=== PATIENT | female | born 1990 | race Two or more races ===

== ENCOUNTER 2016-11-06 11:04 | Emergency (ER) | payer SELFPAY ==
[~2016-11-06 11:04] MED LIST: AMOX1TAB61 PO; DIPH25CA58 PO; HYDR-971 PO; PRED50TA PO; SULF1TAB24 PO
--- NOTE | 2016-11-06 11:43 | PHYS DOC ---
Past Medical History Past Medical History: A-Fib, Asthma, Seizure Additional Past Medical Histor: POLYCYSTIC OVARY, SKIN CANCER, SVT Past Surgical History: , Other Additional Past Surgical Histo: 2cardiac ablasion,2 ACL repairs, skin cancer, PCOS Alcohol Use: Heavy Drug Use: Marijuana Adult General Chief Complaint Chief Complaint: EYE PROBLEMS HPI HPI Patient is a 25 year old female who presents with right eye lid redness and swelling that she noted when she woke up this morning. Patient also states her left eye is irritated. Patient denies any vision loss. She believes this could come from her makeup. Review of Systems Review of Systems Constitutional: Denies fever or chills [] Eyes: Right eye lid swelling and redness, left eye irritation HENT: Denies nasal congestion or sore throat [] Integument: Denies rash or skin lesions [] Neurologic: Denies headache, focal weakness or sensory changes [] Endocrine: Denies polyuria or polydipsia [] Current Medications Current Medications Current Medications Medications (Trade) Dose Ordered Sig/Ced Start Time Stop Time Status Last Admin Dose Admin Diphenhydramine HCl (Benadryl) 25 mg 1X ONCE 11/06/16 11:45 11/06/16 11:46 Erythromycin (Romycin) 0.25 inch 1X ONCE 11/06/16 11:45 11/06/16 11:46 Allergies Allergies Allergies Coded Allergies Type Severity Reaction Last Updated Verified Sulfa (Sulfonamide Antibiotics) Allergy Intermediate 01/19/15 Yes azithromycin Allergy Intermediate 03/16/14 Yes ciprofloxacin Allergy Intermediate 03/16/14 Yes clindamycin Allergy Intermediate 03/16/14 Yes sulfamethoxazole Allergy Intermediate 03/16/14 Yes tetracycline Allergy Intermediate 03/16/14 Yes trimethoprim Allergy Intermediate 03/16/14 Yes Physical Exam Physical Exam Constitutional: Well developed, well nourished, no acute distress, non-toxic appearance. [] HENT: Normocephalic, atraumatic, bilateral external ears normal, oropharynx moist, no oral exudates, nose normal. [] Eyes: PERRLA, EOMI, Right upper eyelid with small amount of swelling and swelling, left eyelid with trace swelling, bilateral conjunctiva appear normal. Skin: Warm, dry, no erythema, no rash. [] Back: No tenderness, no CVA tenderness. [] Extremities: No tenderness, no cyanosis, no clubbing, ROM intact, no edema. [] Neurologic: Alert and oriented X 3, normal motor function, normal sensory function, no focal deficits noted. [] Psychologic: Affect normal, judgement normal, mood normal. [] EKG EKG [] Radiology/Procedures Radiology/Procedures [] Course & Med Decision Making Course & Med Decision Making Pertinent Labs and Imaging studies reviewed. (See chart for details) Patient has been blepharitis, she was given erythromycin eye ointment in the ED. Instructed to use it every 4 hours while awake. Warm compresses recommended to the right upper eyelid Tylenol /Motrin for pain. I also recommended she takes Benadryl as needed for swelling follow-up with the eye doctor in 1-2 weeks as needed. Instructed to return to the ED if symptoms worsen. Instructed to change all her make up after treatment. Dragon Disclaimer Dragon Disclaimer This electronic medical record was generated, in whole or in part, using a voice recognition dictation system. Departure Departure Impression: Primary Impression: Blepharitis of both eyes Disposition: 01 HOME, SELF-CARE Condition: STABLE Referrals: NO PCP (PCP) Jennifer PARK MD Follow up with the eye doctor in 1 week if no improvement Patient Instructions: Blepharitis, [id number] Additional Instructions: You were seen for an eye infection. Please use the provided eye antibiotic ointment every 4 hours while awake for 7 days. Follow-up with your own doctor the provided eye doctor in one week if symptoms do not improve. Take Benadryl every 4 hours as needed. Come back to the emergency room if symptoms worsen. Problem Qualifiers Primary Impression: Blepharitis of both eyes Blepharitis type: unspecified type Eyelid: lower Qualified Code: H01.002 - Unspecified blepharitis right lower eyelid SHANE PEREYRA APRN Nov 06, 2016 11:43
[2016-11-06] MEDS ORDERED: ERYTHROMYCIN 0.5% OPHTH OINTMENT 1GM TUBE. OU ONE (11:45)
[2016-11-06] MEDS ORDERED: DIPHENHYDRAMINE HCL 25 MG CAPSULE PO ONE (11:45)
[2016-11-06 12:05] VITALS: BP 138/79
== END 2016-11-06 12:24 | disposition home or self-care (01) ==
LOC: ER 11:04
DX: H01.001 Unspecified blepharitis right upper eyelid (principal); H01.006 Unspecified blepharitis left eye, unspecified eyelid; F12.10 Cannabis abuse, uncomplicated; I48.91 Unspecified atrial fibrillation; F10.20 Alcohol dependence, uncomplicated; J45.909 Unspecified asthma, uncomplicated; Z88.2 Allergy status to sulfonamides; Z88.6 Allergy status to analgesic agent; Z88.1 Allergy status to other antibiotic agents; Z88.8 Allergy status to other drugs, medicaments and biological substances
CPT/HCPCS: 99283; Q0163

== ENCOUNTER 2016-12-31 20:39 | Emergency (ER) | payer SELFPAY ==
[~2016-12-31] VITALS: Ht 180.3 cm; Wt 95.3 kg
[2016-12-31 21:40] VITALS: BP 125/67
[2016-12-31] MEDS ORDERED: HYDROCODONE/APAP 5/325MG TABLET. PO ONE (22:30)
[2016-12-31] MEDS ORDERED: HYDR-971 PO (23:23)
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
--- NOTE | 2017-01-01 08:10 | RAD ---
Exam performed: 3 views right knee. Clinical indication: Right knee pain, status post injury Date of Service: 12/31/16 Comparison:08/03/13. Findings: AP, oblique and lateral radiographs of the knee reveal the osseous structures to be intact and well aligned. There are postoperative changes of prior ACL repair. The joint space is well-preserved. Small osteophyte seen from the lateral tibial plateau. The articular margins are smooth. Evidence of calcific loose body not seen. Small joint effusion noted. Impression: Postoperative changes of previous ACL repair. No acute abnormality noted. Small joint effusion
== END 2016-12-31 23:32 | disposition home or self-care (01) ==
LOC: ER 20:39
DX: S00.83XA Contusion of other part of head, initial encounter (principal); M25.561 Pain in right knee; R51 Headache; I48.91 Unspecified atrial fibrillation; J45.909 Unspecified asthma, uncomplicated; E28.2 Polycystic ovarian syndrome; F17.200 Nicotine dependence, unspecified, uncomplicated; Z88.2 Allergy status to sulfonamides; Z88.1 Allergy status to other antibiotic agents; Y04.0XXA Assault by unarmed brawl or fight, initial encounter; Y93.89 Activity, other specified; Y99.8 Other external cause status; Y92.89 Other specified places as the place of occurrence of the external cause
CPT/HCPCS: 29505; 73562; 99284-25

== ENCOUNTER 2018-05-02 08:22 | Emergency (ER) | payer SELFPAY ==
[2018-05-02] MEDS: HYDROcodone/APAP 5/325MG 1 TAB TABLET PO (08:46)
[2018-05-02] MEDS: diazePAM 5 MG TABLET PO (08:46)
== END 2018-05-02 09:20 | disposition home or self-care (01) ==
LOC: ER 08:22
DX: M25.561 Pain in right knee (principal); I48.91 Unspecified atrial fibrillation; J45.909 Unspecified asthma, uncomplicated; Z88.1 Allergy status to other antibiotic agents; Z88.2 Allergy status to sulfonamides
CPT/HCPCS: 29505; 73560; 99284

== ENCOUNTER 2018-10-01 15:31 | Emergency (ER) | payer SELFPAY ==
[~2018-10-01] VITALS: Ht 180.3 cm; Wt 108.9 kg
[~2018-10-01 15:31] MED LIST changes: +CYCL5TAB PO; +HYDR-3164 PO; -HYDR-971 PO
[2018-10-01 15:49] VITALS: BP 129/64
[2018-10-01] MEDS ORDERED: HYDROcodone/APAP 5/325MG 1 TAB TABLET PO ONE (16:15)
[2018-10-01] MEDS ORDERED: IBUPROFEN 600 MG TABLET. PO ONE (16:15)
[2018-10-01] MEDS ORDERED: HYDR-3164 PO (16:22)
[2018-10-01] MEDS ORDERED: PENI500T PO (16:22)
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
== END 2018-10-01 16:54 | disposition home or self-care (01) ==
LOC: ER 15:31
DX: K02.9 Dental caries, unspecified (principal); I48.91 Unspecified atrial fibrillation; J45.909 Unspecified asthma, uncomplicated; Z98.890 Other specified postprocedural states; Z88.2 Allergy status to sulfonamides; Z88.1 Allergy status to other antibiotic agents
CPT/HCPCS: 99283

== ENCOUNTER 2019-04-11 18:30 | Emergency (ER) | payer SELFPAY ==
[~2019-04-11] VITALS: Ht 180.3 cm; Wt 108.9 kg
[~2019-04-11 18:30] MED LIST changes: +PENI500T PO
[2019-04-11] MEDS ORDERED: MORPHINE SULFATE 10 MG/ML VIAL. IM ONE (18:45)
[2019-04-11] MEDS ORDERED: methylPREDNISolone SOD SUCC PF 125 MG/2 ML VIAL. IM ONE (18:45)
[2019-04-11] MEDS ORDERED: KETOROLAC 60 MG/2 ML VIAL. IM ONE (18:45)
[2019-04-11] MEDS ORDERED: DICL50TA4 PO (20:12)
[2019-04-11] MEDS ORDERED: METH4TAB2 PO (20:12)
--- NOTE | 2019-04-11 20:13 | PHYS DOC ---
Past Medical History Past Medical History: A-Fib, Asthma, Seizure Additional Past Medical Histor: POLYCYSTIC OVARY, SKIN CANCER, SVT Past Surgical History: , Other Additional Past Surgical Histo: 2 cardiac ablasion,2 ACL repairs, skin cancer, PCOS Alcohol Use: Occasionally Drug Use: None Adult General Chief Complaint Chief Complaint: KNEE SWELLING HPI HPI Patient is a 28 year old female who presents to the ED today complaining of a sharp constant 10 out of 10 right lateral knee pain that began this morning. Patient denies any known injury. She states she's had ACL repair to the knee a couple years ago. Patient states the pain is worse on weight-bearing. Denies anything specifically relieving the pain. She is also complaining of a sharp constant 10 out of 10 left toes pain that began a week ago after she stubbed her toes when walking. Patient states the pain is worse on touching those toes. Denies anything specifically relieving the pain. Patient states she went to [facility] emergency room down the street, she states they refused to give her anything for pain. Review of Systems Review of Systems Constitutional: Denies fever or chills [] Musculoskeletal: Reports right knee pain and left toe pain Integument: Denies rash or skin lesions [] Neurologic: Denies headache, focal weakness or sensory changes [] [] All other systems were reviewed and found to be within normal limits, except as documented in this note. Current Medications Current Medications Current Medications Medications (Trade) Dose Ordered Sig/Ced Start Time Stop Time Status Last Admin Dose Admin Ketorolac Tromethamine (Toradol Im) 60 mg 1X ONCE 04/11/19 18:45 04/11/19 18:50 DC 04/11/19 18:55 60 MG Methylprednisolone Sodium Succinate (SOLU-Medrol 125MG VIAL) 125 mg 1X ONCE 04/11/19 18:45 04/11/19 18:50 DC 04/11/19 18:55 125 MG Morphine Sulfate (Morphine Sulfate) 5 mg 1X ONCE 04/11/19 18:45 04/11/19 18:50 DC 04/11/19 18:55 5 MG Allergies Allergies Allergies Coded Allergies Type Severity Reaction Last Updated Verified Sulfa (Sulfonamide Antibiotics) Allergy Intermediate 01/19/15 Yes azithromycin Allergy Intermediate 03/16/14 Yes ciprofloxacin Allergy Intermediate 03/16/14 Yes clindamycin Allergy Intermediate 03/16/14 Yes sulfamethoxazole Allergy Intermediate 03/16/14 Yes tetracycline Allergy Intermediate 03/16/14 Yes trimethoprim Allergy Intermediate 03/16/14 Yes Physical Exam Physical Exam Constitutional: Well developed, well nourished, no acute distress, non-toxic appearance. [] Skin: Warm, dry, no erythema, no rash. [] Back: No tenderness, no CVA tenderness. [] Extremities: Right knee with no obvious deformity. Old healed surgical incision noted on the right anterior knee. Full passive range of motion to the right knee, no laxity. +2 right pedal pulse. Cap refill less than 2 seconds the right lower extremity. Sensation intact to the right lower extremity. Left foot with no obvious deformity. Tenderness diffusely on palpation of the left third through fifth toes. Full range of motion to the left foot and toes. +2 left pedal pulse. Cap refill less than 2 seconds the left toes. Neurologic: Alert and oriented X 3, normal motor function, normal sensory func tion, no focal deficits noted. [] Psychologic: Affect normal, judgement normal, mood normal. [] Current Patient Data Vital Signs Vital Signs Date Time Temp Pulse Resp B/P (MAP) Pulse Ox O2 Delivery O2 Flow Rate FiO2 04/11/19 18:40 98.2 68 20 126/67 (86) 96 Room Air 98.2 EKG EKG [] Radiology/Procedures Radiology/Procedures [] Course & Med Decision Making Course & Med Decision Making Pertinent Labs and Imaging studies reviewed. (See chart for details) This is a 28-year-old female patient presenting to the ED today with with right knee pain-no known injury. See history of present illness. Patient was seen at a different facility prior to coming to the ED and they declined to give her anything for pain. I offered her pain relief in the ED and told that we will not write her any narcotic prescriptions for home use. She requested left foot x-ra y from an injury a week ago. Left foot x-rays interpreted by Dr. Luke and negative for any acute findings. She requested immobilizer for the right knee which was provided and placed in the ED by the ED RN, neurovascular exam is intact. Ice elevation encouraged. Prescriptions for diclofenac and Medrol dose pack provided. She read he has an orthopedic doctor. Dragon Disclaimer Dragon Disclaimer This electronic medical record was generated, in whole or in part, using a voice recognition dictation system. Departure Departure Impression: Primary Impression: Right knee pain Additional Impression: Left foot pain Disposition: 01 HOME, SELF-CARE Condition: STABLE Referrals: NO PCP (PCP) DORA TUTTLE MD follow up next week Patient Instructions: Knee Pain, [id number] Additional Instructions: You were evaluated for right knee and left foot/toe pain, your left foot x-rays were negative for any acute findings. Please ice and elevate the extremities. Take the prescribed medications as ordered. Follow-up with your doctor in 1-2 w eeks. Scripts Methylprednisolone (MEDROL) 4 Mg Tab.ds.pk 1 PKG PO UD, #1 PKG Prov: SHANE PREEYRA APRN 04/11/19 Diclofenac Sodium (DICLOFENAC SODIUM) 50 Mg Tablet.dr 1 TAB PO BID, #20 TAB 0 Refills Prov: SHANE PEREYRA APRN 04/11/19 Problem Qualifiers Primary Impression: Right knee pain Chronicity: acute Qualified Codes: M25.561 - Pain in right knee SHANE PEREYRA APRN Apr 11, 2019 20:13
[2019-04-11 20:25] VITALS: BP 112/58
--- NOTE | 2019-04-11 20:58 | RAD ---
Left foot x-rays 3 views HISTORY: Left foot pain. FINDINGS: There is an acute traumatic oblique fracture of the fourth toe proximal phalanx involving the shaft through the distal head at the PIP joint. Small spur the plantar calcaneus. No dislocation. IMPRESSION: Fracture of the fourth toe proximal phalanx. Electronically signed by: Brigido Wright MD (04/11/2019 8:55 PM) [facility]
== END 2019-04-11 20:26 | disposition home or self-care (01) ==
LOC: ER 18:30
DX: S92.512A Displaced fracture of proximal phalanx of left lesser toe(s), initial encounter for closed fracture (principal); M25.561 Pain in right knee; M79.672 Pain in left foot; I48.91 Unspecified atrial fibrillation; J45.909 Unspecified asthma, uncomplicated; Z88.1 Allergy status to other antibiotic agents; Z88.2 Allergy status to sulfonamides; Z88.8 Allergy status to other drugs, medicaments and biological substances; W22.8XXA Striking against or struck by other objects, initial encounter; Y93.01 Activity, walking, marching and hiking; Y92.89 Other specified places as the place of occurrence of the external cause; Y99.8 Other external cause status
CPT/HCPCS: 29505; 73630; 96372; 99284; J1885; J2270; J2930

== ENCOUNTER 2020-02-07 12:17 | Emergency (ER) | payer SELFPAY ==
[~2020-02-07] VITALS: Ht 180.3 cm; Wt 123.0 kg
[~2020-02-07 12:17] MED LIST changes: +DICL50TA4 PO; +METH4TAB2 PO
[2020-02-07 12:41] VITALS: BP 152/91
[2020-02-07] MEDS: KETOROLAC 60 MG/2 ML VIAL. IM ONE (13:14)
[2020-02-07] MEDS: AMOXICILLIN 250 MG CAPSULE. PO ONE (13:14)
[2020-02-07] MEDS: BUPIVACAINE MPF 0.5% 30 ML VIAL. INJ ONE (13:26)
[2020-02-07] MEDS ORDERED: diphenhydrAMINE 50 MG/ML VIAL ONE (13:58)
[2020-02-07] MEDS: diphenhydrAMINE 50 MG/ML VIAL IM ONE (14:00)
[2020-02-07] MEDS: methylPREDNISolone SOD SUCC PF 125 MG/2 ML VIAL. IM ONE (14:08)
[2020-02-07] MEDS ORDERED: TRAM50TA PO (14:44)
[2020-02-07] MEDS ORDERED: AMOX500C PO (14:44)
[2020-02-07] MEDS ORDERED: IBUP-1060 PO (14:44)
--- NOTE | 2020-02-07 14:45 | PHYS DOC ---
Past Medical History Past Medical History: Asthma, Seizure Additional Past Medical Histor: POLYCYSTIC OVARY, SKIN CANCER, SVT Past Surgical History: , Other Additional Past Surgical Histo: 2 cardiac ablasion,2 ACL repairs, skin cancer, PCOS Smoking Status: Current Every Day Smoker Alcohol Use: Occasionally Drug Use: None Adult General Chief Complaint Chief Complaint: DENTAL PROBLEM [facility] HPI Patient is a 29 year old female presents to ER today for evaluation of right lower jaw pain and swelling for about a month. Patient had not seen a dentist yet due to she has no money. Patient denies any headache, no fever. Patient denies any nausea vomiting. Patient has been able to open her mouth without a problem. Patient complained of pain in her right wisdom tooth area. Review of Systems Review of Systems Constitutional: Denies fever or chills [] Eyes: Denies change in visual acuity, redness, or eye pain [] HENT: Denies nasal congestion or sore throat. POSITIVE FOR RIGHT SIDE LOWER DENTAL PAIN, JAW SWELLING. Respiratory: Denies cough or shortness of breath [] Cardiovascular: No additional information not addressed in HPI [] GI: Denies abdominal pain, nausea, vomiting, bloody stools or diarrhea [] : Denies dysuria or hematuria [] Musculoskeletal: Denies back pain or joint pain [] Integument: Denies rash or skin lesions [] Neurologic: Denies headache, focal weakness or sensory changes [] Endocrine: Denies polyuria or polydipsia [] All other systems were reviewed and found to be within normal limits, except as documented in this note. Current Medications Current Medications Current Medications Medications (Trade) Dose Ordered Sig/[facility] Start Time Stop Time Status Last Admin Dose Admin Amoxicillin (Amoxil) 1,000 mg 1X ONCE 02/07/20 13:00 02/07/20 13:09 DC 02/07/20 13:14 1,000 MG Bupivacaine HCl (Sensorcaine Mpf 0.5%) 30 ml 1X ONCE 02/07/20 13:02/07/20 13:09 DC 02/07/20 13:26 30 ML Diphenhydramine HCl (Benadryl) 50 mg STK-MED ONCE 02/07/20 13:58 02/07/20 13:59 DC Ketorolac Tromethamine (Toradol Im) 60 mg 1X ONCE 02/07/20 13:00 02/07/20 13:09 DC 02/07/20 13:14 60 MG Methylprednisolone Sodium Succinate (SOLU-Medrol 125MG VIAL) 125 mg 1X ONCE 02/07/20 14:00 02/07/20 14:01 DC 02/07/20 14:08 125 MG Allergies Allergies Allergies Coded Allergies Type Severity Reaction Last Updated Verified Sulfa (Sulfonamide Antibiotics) Allergy Intermediate 01/19/15 Yes azithromycin Allergy Intermediate 03/16/14 Yes ciprofloxacin Allergy Intermediate 03/16/14 Yes clindamycin Allergy Intermediate 03/16/14 Yes sulfamethoxazole Allergy Intermediate 03/16/14 Yes tetracycline Allergy Intermediate 03/16/14 Yes trimethoprim Allergy Intermediate 03/16/14 Yes Physical Exam Physical Exam Constitutional: Well developed, well nourished, no acute distress, non-toxic appearance. [] HENT: Normocephalic, atraumatic, bilateral external ears normal, oropharynx moist, no oral exudates, nose normal. RIGHT SIDE LOWER JAW SWELLING. NO TRISMUS. RIGHT LOWER 3RD MOLAR IMPACTED. RIGHT SIDE LOWER GUMLINE AROUND RIGHT 3RD AND 2ND MOLARS SWELLING AND INDURATED. Eyes: PERRLA, EOMI, conjunctiva normal, no discharge. Neck: Normal range of motion, no tenderness, supple, no stridor. [] Cardiovascular:Heart rate regular rhythm, no murmur [] Lungs & Thorax: Bilateral breath sounds clear to auscultation [] Abdomen: Bowel sounds normal, soft, no tenderness, no masses, no pulsatile masses. [] Skin: Warm, dry, no erythema, no rash. [] Back: No tenderness, no CVA tenderness. [] Extremities: No tenderness, no cyanosis, no clubbing, ROM intact, no edema. [] Neurologic: Alert and oriented X 3, normal motor function, normal sensory function, no focal deficits noted. [] Psychologic: Affect normal, judgement normal, mood normal. [] Current Patient Data Vital Signs Vital Signs Date Time Temp Pulse Resp B/P (MAP) Pulse Ox O2 Delivery O2 Flow Rate FiO2 02/07/20 14:13 102 98 Room Air 02/07/20 12:41 98.3 16 152/91 (111) 98.3 EKG EKG [] Radiology/Procedures Radiology/Procedures [] Course & Med Decision Making Course & Med Decision Making Pertinent Labs and Imaging studies reviewed. (See chart for details) Patient was given 60 mg of Toradol IM, 1 g of amoxicillin p.o.. 8 ml of marcaine was used to perform inferior alveolar nerve block and mental block. A 18 GAUGE NEEDLE ATTACHED TO THE 10 ML SYRINGE WAS USED TO PENETRATE THE INDURATED GUMLINE BY THE RIGHT LOWER 2ND AND 3RD MOLAR AREA, SMALL AMOUNT OF YELLOW PUS MIX WITH BLOOD WAS ASPIRATED. Patient tolerated procedure well. About 20 minutes afterward, patient started feeling itching around her face and then became feeling itching all over. Patient said she was given toradol shot in the past, took ibuprofen in the past and tolerated well without any problem. Patient also said she tool amoxil in the past without any problem. Patient said marcaine injection was new medication to her. Therefore, patient most likely has an allergic reaction to marcaine. Patient was given 50 mg benadryl IM, 20 PEPCID PO AND 125 MG SOLUMEDROL IM. After 30 minutes patient felt much better. Patient was discharged home after she was observed for another 30 minutes. Patient denies any chest pain, no trouble breathing. Patient was discharged home, instructed to follow-up with oral surgeon for her impacted third molar infection. Dragon Disclaimer Dragon Disclaimer This electronic medical record was generated, in whole or in part, using a voice recognition dictation system. Departure Departure Impression: Primary Impression: Dental abscess Additional Impression: Allergic reaction caused by a drug Disposition: 01 HOME, SELF-CARE Condition: STABLE Referrals: NO PCP (PCP) Patient Instructions: Allergies, Generic, Dental Abscess Additional Instructions: Thank you for visiting our Emergency Department. We appreciate you trusting us with your care. If any additional problems come up don't hesitate to return to visit us. Please follow up with your primary care provider so they can plan additional care if needed and know about the problem that you had. If symptoms worsen come back to the Emergency Department. Any concerning symptoms that start such as chest pain, shortness of air, weakness or numbness on one side of the body, running high fevers or any other concerning symptoms return to the ER. You were allergic to BUPIVACAINE. PLEASE NOTIFY YOUR DOCTOR ABOUT IT. Scripts Famotidine (PEPCID) 20 Mg Tablet 20 MG PO HS for 5 Days, #5 TAB Prov: GILMAR LANG DO 02/07/20 Prednisone (PREDNISONE) 20 Mg Tablet 1 TAB PO DAILY, #5 TAB Prov: GILMAR LANG DO 02/07/20 Ibuprofen (IBUPROFEN) 800 Mg Tablet 800 MG PO PRN Q8HRS PRN for PAIN, #30 TAB Prov: GILMAR LANG DO 02/07/20 Tramadol Hcl (TRAMADOL HCL) 50 Mg Tablet 50 MG PO Q6HRS PRN for PAIN, #20 TAB Prov: GILMAR LANG DO 02/07/20 Amoxicillin (AMOXICILLIN) 500 Mg Capsule 1 CAP PO TID for 10 Days, #30 CAP Prov: GILMAR LANG DO 02/07/20 Problem Qualifiers GILMAR LANG DO Feb 07, 2020 14:45
[2020-02-07] MEDS ORDERED: FAMO-63 PO (14:49)
[2020-02-07] MEDS ORDERED: PRED20TA PO (14:49)
== END 2020-02-07 14:57 | disposition home or self-care (01) ==
LOC: ER 12:17
DX: T41.3X5A Adverse effect of local anesthetics, initial encounter (principal); K04.7 Periapical abscess without sinus; J45.909 Unspecified asthma, uncomplicated; I97.89 Other postprocedural complications and disorders of the circulatory system, not elsewhere classified; I47.1 Supraventricular tachycardia; F17.200 Nicotine dependence, unspecified, uncomplicated; Z85.828 Personal history of other malignant neoplasm of skin; Z98.890 Other specified postprocedural states; Z88.2 Allergy status to sulfonamides; Z88.1 Allergy status to other antibiotic agents; Z88.8 Allergy status to other drugs, medicaments and biological substances; Z88.6 Allergy status to analgesic agent; Y92.89 Other specified places as the place of occurrence of the external cause
CPT/HCPCS: 41800; 96372; 99284; J1200; J1885; J2930; J3490

== ENCOUNTER 2020-02-09 22:42 | Emergency (ER) | payer SELFPAY ==
[~2020-02-09] VITALS: Ht 180.3 cm; Wt 122.7 kg
[~2020-02-09 22:42] MED LIST changes: +AMOX500C PO; +FAMO-63 PO; +IBUP-1060 PO; +PRED20TA PO; +TRAM50TA PO
[2020-02-09] MEDS ORDERED: cefTRIAXone IM 1 GM VIAL IM ONE (23:15)
[2020-02-09] MEDS ORDERED: methylPREDNISolone SOD SUCC PF 125 MG/2 ML VIAL. IM ONE (23:15)
[2020-02-09] MEDS ORDERED: metroNIDAZOLE 500 MG TABLET PO ONE (23:15)
[2020-02-09] MEDS ORDERED: oxyCODONE/APAP 7.5/325 1 TAB TABLET PO ONE (23:15)
[2020-02-09] MEDS ORDERED: METH4TAB2 PO (23:17)
[2020-02-09] MEDS ORDERED: OXYC1TAB19 PO (23:17)
[2020-02-09] MEDS ORDERED: METR-34 PO (23:17)
--- NOTE | 2020-02-09 23:24 | PHYS DOC ---
Past Medical History Past Medical History: Asthma, Seizure Additional Past Medical Histor: POLYCYSTIC OVARY, SKIN CANCER, SVT Past Surgical History: , Other Additional Past Surgical Histo: 2 cardiac ablasion,2 ACL repairs, skin cancer, PCOS Smoking Status: Current Every Day Smoker Alcohol Use: Occasionally Drug Use: None General Adult EDM: Chief Complaint: DENTAL PROBLEM HPI: HPI: Patient is a 29 year old female who presents with complaint of right lower jaw pain that started about 5 days ago. She states that swelling has been present last 5 days and was seen in this department 2 days ago. Patient states that swelling has gotten slightly larger and more painful. She started taking amoxicillin 2 days ago. Patient is concerned because it doesn't seem to be get ting any better. She states that she was given some Toradol for pain but that is not helping the pain. She denies any fever. She also indicates that she is having some right ear pain.[] Review of Systems: Review of Systems: Constitutional: Denies fever or chills. [] HENT: Complains of right lower dental and jaw. [] Respiratory: Denies cough or shortness of breath. [] Cardiovascular: Denies chest pain or edema. [] Neurologic: Denies headache, focal weakness or sensory changes. [] Heart Score: Risk Factors: Risk Factors: DM, Current or recent (<one month) smoker, HTN, HLP, family history of CAD, obesity. Risk Scores: Score 0 - 3: 2.5% MACE over next 6 weeks - Discharge Home Score 4 - 6: 20.3% MACE over next 6 weeks - Admit for Clinical Observation Score 7 - 10: 72.7% MACE over next 6 weeks - Early Invasive Strategies Current Medications: Current Medications Medications (Trade) Dose Ordered Sig/[facility] Start Time Stop Time Status Last Admin Dose Admin Ceftriaxone Sodium (Rocephin Im) 1 gm 1X ONCE 02/09/20 23:00 02/09/20 23:01 UNV Methylprednisolone Sodium Succinate (SOLU-Medrol 125MG VIAL) 125 mg 1X ONCE 02/09/20 23:00 02/09/20 23:01 UNV Metronidazole (Flagyl) 500 mg 1X ONCE 02/09/20 23:00 02/09/20 23:01 UNV Oxycodone/ Acetaminophen (Percocet 7.5/ 325) 1 tab 1X ONCE 02/09/20 23:00 4/7/20 23:01 UNV Allergies: Allergies: Allergies Coded Allergies Type Severity Reaction Last Updated Verified Sulfa (Sulfonamide Antibiotics) Allergy Intermediate 01/19/15 Yes azithromycin Allergy Intermediate 03/16/14 Yes bupivacaine Allergy Intermediate Rash 02/09/20 Yes ciprofloxacin Allergy Intermediate 03/16/14 Yes clindamycin Allergy Intermediate 03/16/14 Yes sulfamethoxazole Allergy Intermediate 03/16/14 Yes tetracycline Allergy Intermediate 03/16/14 Yes trimethoprim Allergy Intermediate 03/16/14 Yes Physical Exam: PE: Constitutional: Well developed, well nourished, no acute distress, non-toxic appearance. [] HENT: Normocephalic, atraumatic, with mild to moderate swelling in the right lower jaw/mandibular region. [] Neck: Normal range of motion, no tenderness, supple, no stridor. [] Cardiovascular: Regular rate and rhythm[] Lungs & Thorax: Bilateral breath sounds clear to auscultation [] Skin: Warm, dry, no erythema, no rash. [] Current Patient Data: Vital Signs: Vital Signs Date Time Temp Pulse Resp B/P (MAP) Pulse Ox O2 Delivery O2 Flow Rate FiO2 02/09/20 22:45 97.7 85 20 133/76 (95) 98 Room Air 97.7 EKG: EKG: [] Radiology/Procedures: Radiology/Procedures: [] Course & Med Decision Making: Course & Med Decision Making Pertinent Labs and Imaging studies reviewed. (See chart for details) [] Dragon Disclaimer: Dragon Disclaimer: This electronic medical record was generated, in whole or in part, using a voice recognition dictation system. Departure Departure Impression: Primary Impression: Pain, dental Additional Impression: Caries Disposition: HOME, SELF-CARE Condition: STABLE Referrals: NO PCP (PCP) Patient Instructions: Dental Abscess, Dental Caries, Dental Pain Scripts Methylprednisolone (MEDROL) 4 Mg Tab.ds.pk 1 PKG PO UD, #1 PKG Prov: SARIAH FLEMING Jr. DO 02/09/20 Oxycodone/Apap 7.5-325 (PERCOCET 7.5-325 MG TABLET ) 1 Each Tablet 1 TAB PO QIDPRN PRN for PAIN MDD 4 Tablet(s), #15 TAB 0 Refills Prov: SARIAH FLEMING Jr. DO 02/09/20 Metronidazole (METRONIDAZOLE) 500 Mg Tablet 1 TAB PO TID for 10 Days, #30 TAB 0 Refills Prov: SARIAH FLEMING Jr. DO 02/09/20 SARIAH FLEMING Jr. DO Feb 09, 2020 23:24
[2020-02-10 00:15] VITALS: BP 134/80
== END 2020-02-10 00:15 | disposition home or self-care (01) ==
LOC: ER 22:42
DX: K02.9 Dental caries, unspecified (principal); K08.89 Other specified disorders of teeth and supporting structures; R60.0 Localized edema; J45.909 Unspecified asthma, uncomplicated; F17.200 Nicotine dependence, unspecified, uncomplicated; Z85.828 Personal history of other malignant neoplasm of skin; Z98.890 Other specified postprocedural states; Z88.1 Allergy status to other antibiotic agents; Z88.2 Allergy status to sulfonamides; Z88.8 Allergy status to other drugs, medicaments and biological substances
CPT/HCPCS: 96372; 99284; J0696; J2930

== ENCOUNTER → 2020-04-19 | Outpatient (CLI) | payer OTHER ==
[~2020-04-19] MED LIST changes: +HYDR25TA PO; +METR-34 PO; +OXYC1TAB19 PO
--- NOTE | 2020-04-19 10:49 | KCIC ---
MR of the right knee HISTORY: Medial right knee pain. Prior ACL surgery x2. Recent MCL sprain and bone contusion. TECHNIQUE: Routine multiplanar sequences are obtained. COMPARISON STUDY: None are available FINDINGS: Mild motion degradation. Medial meniscus is small and blunted, likely due in part due to prior meniscectomy. However, there is distortion of the meniscus with some abnormal surfacing T2 signal, compatible with a tear. Lateral meniscus demonstrates some internal signal and distortion, particularly at the posterior horn. Could be due to prior meniscectomy but difficult to exclude a mild tear. Anterior cruciate ligament reconstruction is poorly seen. The intercondylar notch is somewhat obscured by postoperative artifact. There is a large lateral femoral sidewall osteophyte which encroaches upon the expected location of the anterior cruciate ligament. Chronic tear is not possible to exclude. Anterior translation of the tibia. No acute pivot shift bone injuries are seen. Posterior cruciate ligament intact. Medial collateral ligament is intact. Iliotibial band unremarkable. Fibular collateral ligament, biceps femoris tendon and popliteus tendon are intact. The extensor mechanism is intact. Moderate joint effusion. No significant Wu's cyst. Severe chondral thinning at the medial joint compartment. Severe chondral thinning at the posterior aspect of the lateral joint compartment. Mild chondromalacia and degenerative changes at the patellofemoral joint. No evidence of acute fracture. No aggressive bone destruction. There is scattered susceptibility artifact around the knee, compatible with prior surgical intervention. IMPRESSION: 1. Abnormal medial meniscus, may be partially postoperative, but recurrent tearing is still suspected. 2. Mild irregularity of the lateral meniscus, compatible with prior surgery versus a mild tear. 3. Anterior cruciate ligament reconstruction is nonvisualized. Although the intercondylar notch is obscured by artifact, the lack of visualization does suggest a chronic tear. 4. DJD. Electronically signed by: Mamadou Villarreal MD (04/19/2020 10:46 AM) [id number]
--- NOTE | 2020-04-19 11:03 | KCIC ---
MR of the left knee HISTORY: Stability of left patellofemoral joint. TECHNIQUE: Routine multiplanar sequences are obtained. FINDINGS: No evidence of medial meniscal tear. No evidence of lateral meniscal tear. Anterior cruciate ligament demonstrates an irregular morphology with some probable slight horizontalization distally and findings are suspicious for a chronic ACL tear. No acute pivot shift bone injuries or large effusion. Posterior cruciate ligament intact. Medial collateral ligament intact. Iliotibial band unremarkable. Fibular collateral ligament, biceps femoris tendon and popliteus tendon are intact. Extensor mechanism intact. Trace joint fluid. Trace Wu's cyst. No acute articular cartilage defect. Mild chondromalacia at the posterior lateral tibial plateau. No acute fracture. No aggressive bone destruction. No visible patellar tilt or subluxation. Tibial tubercle-trochlear groove distance measures 11 mm. IMPRESSION: Thin irregular anterior cruciate ligament, suspicious for a chronic tear. Electronically signed by: Mamadou Villarreal MD (04/19/2020 11:00 AM) [id number]
== END | disposition home or self-care (01) ==
LOC: KCIC MRI 09:32
PROVIDERS: ATTEND Orthopaedic Surgery
DX: M94.262 Chondromalacia, left knee (principal); M25.461 Effusion, right knee; M25.462 Effusion, left knee; M23.8X2 Other internal derangements of left knee; M23.8X1 Other internal derangements of right knee; M17.0 Bilateral primary osteoarthritis of knee
CPT/HCPCS: 73721

== ENCOUNTER 2020-05-20 12:53 | Emergency (ER) | payer OTHER ==
[~2020-05-20] VITALS: Ht 177.8 cm; Wt 118.0 kg
[~2020-05-20 12:53] MED LIST changes: -HYDR25TA PO
[2020-05-20 13:06] VITALS: BP 158/84
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
[2020-05-20] MEDS ORDERED: HYDR25TA PO (14:16)
== END 2020-05-20 14:21 | disposition left against medical advice (07) ==
LOC: ER 12:53
DX: F19.951 Other psychoactive substance use, unspecified with psychoactive substance-induced psychotic disorder with hallucinations (principal); J44.9 Chronic obstructive pulmonary disease, unspecified; F17.200 Nicotine dependence, unspecified, uncomplicated; Z88.1 Allergy status to other antibiotic agents; Z88.2 Allergy status to sulfonamides; Z88.8 Allergy status to other drugs, medicaments and biological substances
CPT/HCPCS: 99284

== ENCOUNTER → 2020-09-06 | Outpatient (CLI) | payer OTHER ==
[~2020-09-06] MED LIST changes: +HYDR-2765 PO; +HYDR25TA PO
== END ==
LOC: LAB 14:41
PROVIDERS: ATTEND Orthopaedic Surgery
DX: Z01.812 Encounter for preprocedural laboratory examination (principal); Z20.828 Contact with and (suspected) exposure to other viral communicable diseases
CPT/HCPCS: U0003

== ENCOUNTER 2020-09-09 06:14 | Observation (INO) | payer OTHER ==
[~2020-09-09] VITALS: Ht 174 cm; Wt 130.5 kg
[2020-09-09] MEDS ORDERED: LIDOCAINE 2% PF 5 ML VIAL. ONE ×2 (06:48→08:17)
[2020-09-09] MEDS ORDERED: fentaNYL PF VIAL 100 MCG/2 ML VIAL ONE ×2 (06:48→10:44)
[2020-09-09] MEDS ORDERED: PROPOFOL 10 MG/ML (20ML) VIAL. IV ONE ×2 (06:48→10:21)
[2020-09-09] MEDS ORDERED: EPINEPHrine VIAL 30 MG/30 ML VIAL ONE (06:49)
[2020-09-09] MEDS ORDERED: IV RINGERS,LACTATED 1000ML 1,000 ML IV SCH (07:00)
[2020-09-09] MEDS ORDERED: LIDOCAINE 1% PF 2 ML VIAL. ID PRN (07:00)
[2020-09-09] MEDS ORDERED: fentaNYL PF VIAL 100 MCG/2 ML VIAL IV PRN (07:00)
[2020-09-09] MEDS ORDERED: PROCHLORPERAZINE 10 MG/2 ML VIAL. IV PRN (07:00)
[2020-09-09] MEDS ORDERED: ONDANSETRON PF 4 MG/2 ML VIAL. IV PRN (07:00)
[2020-09-09] MEDS ORDERED: MIDAZOLAM HCL/PF 2 MG/2 ML VIAL. ONE (07:23)
[2020-09-09] MEDS ORDERED: DEXAMETHASONE SOD PHOS 4 MG/ML VIAL ONE (08:17)
[2020-09-09] MEDS ORDERED: ONDANSETRON PF 4 MG/2 ML VIAL. ONE (08:17)
[2020-09-09] MEDS ORDERED: diphenhydrAMINE 50 MG/ML VIAL ONE (08:18)
[2020-09-09] MEDS ORDERED: EPINEPHrine 1 MG/ML VIAL INT ART ONE (08:30)
[2020-09-09] MEDS ORDERED: ROPIVacaine 0.5% PF 20 ML VIAL. INT ART ONE (08:30)
[2020-09-09] MEDS: fentaNYL PF VIAL 100 MCG/2 ML VIAL IV PRN ×2 (10:44→10:49)
[2020-09-09] MEDS ORDERED: MORPHINE SULFATE 2 MG/ML VIAL. ONE (10:54)
[2020-09-09] MEDS: MORPHINE SULFATE 2 MG/ML VIAL. IV PRN ×2 (10:58→11:08)
[2020-09-09] MEDS ORDERED: PROCHLORPERAZINE 10 MG/2 ML VIAL. ONE (11:05)
[2020-09-09] MEDS ORDERED: HYDROmorphone 2 MG/ML VIAL ONE (11:05)
[2020-09-09] MEDS: HYDROmorphone 2 MG/ML VIAL IV PRN ×4 (11:16→11:50)
[2020-09-09] MEDS: IV NORMAL SALINE 1000ML BAG 1,000 ML IV SCH ×2 (11:21→20:09)
--- NOTE | 2020-09-09 11:21 | PDOC4 ---
Operative Note Operative Note Date of Procedure: September 09, 2020 Pre-Op Diagnosis: Rupture of anterior cruciate ligament of left knee, initial encounter S83.512A Post-Op Diagnosis: same Procedure: left knee arthroscopy with anterior cruciate ligament reconstruction using ipsilateral bone patellar tendon bone autograft CPT 11361 Surgeon: Dora Bueno MD Buckle Assembler: LINDA Rush Anesthesia: General EBL: 50 mL Specimens Obtained: none Complications: none Drains: none Tourniquet: 57 minutes at 300 mm Hg Indications for Procedure: The patient is a 29-year-old with a history of knee injury. The MRI shows ACL tear of the left knee. The patient and I discussed the options for treatment, including anterior cruciate ligament reconstruction. We discussed the potential risks of ACL reconstruction, such as infection, DVT, stiffness, rupture of the graft, or other potential surgical or anesthetic complications. We discussed the long-term risks of osteoarthritis, especially with ACL injury. All of her questions about surgery were answered and she desired to proceed. Written consent was obtained. Procedure in Detail: The patient was identified in the preoperative holding area. The correct left knee was marked by me. The patient was taken to the operating room where general anesthetic was used. The patient was positioned supine on the operating table, with a tourniquet on the upper left thigh. A lateral brace and heel bump were used such that the knee could stay flexed 90 on the table, without an additional criminal legal assistant. Preoperative antibiotics were given intravenously. A timeout procedure was performed. Local anesthetic with epinephrine was injected into the knee joint, and into the anteromedial tibia area. The limb was prepared with sterile ChloraPrep solution from the tourniquet to the tip of the toes, then sterile drapes are applied. An impervi ous stockinette was used over the lower limb. A midline incision was made. A central one third patellar tendon autograft was harvested using micro-oscillating saw, and a 10 mm wide tendon graft. The bone plugs were 10 mm wide by 28 mm in length. I took the graft to the back table, and I further prepared the bone patellar tendon bone graft. I trimmed the bone plugs to fit through a 10 mm tunnel sizer. I drilled 1 hole in the leading future femoral bone plug, and 3 holes in the bone plug which would become the future tibial end of the graft. I placed a #2 FiberWire suture in each of those 4 holes, one in the femoral bone plug and 3 in the tibial bone plug. The graft was kept moistened and pretensioned until implantation. I preserved the removed bone for future grafting of the harvest sites. I proceeded with the arthroscopy. An Esmarch bandage was used to exsanguinate the limb, and the tourniquet was inflated to 300 mm Hg. Lateral and medial knee arthroscopy portals were established. The patellofemoral joint showed normal articular surfaces so no chondroplasty was required. The medial tibiofemoral joint showed normal articular surfaces so no chondroplasty was required. The medial meniscus was normal and stable to probing. The intercondylar notch showed a high-grade ACL tear with no remaining intact fibers. The lateral articular surfaces showed chondromalacia Outerbridge grade I, so no chondroplasty was required. The lateral tibiofemoral joint showed a normal lateral meniscus, so no lateral meniscectomy was required. A notchplasty was performed with a curette, the shaver, and a motorized bur. The suta-fqm-wlo position was able to be identified after that. A drill guide was placed in the old ACL tibial footprint, using landmarks such as 7 mm in front of the PCL, the trailing edge of the anterolateral portal the lateral meniscus, and the medial tibial spine. The guide pin was placed, and then a 10 mm fluted reamer was used to create the tibial tunnel. The entry to the joint was smoothed with a rasp. Excess soft tissue was removed with a shaver from both ends of the tunnel. A plug was placed. The [id number]-[id number]-[id number] position was again identified. A Marija awl was used to spike the femur at the 1:45 o'clock position for a left knee, approximately 7 mm in front of the [id number] position. The knee was now kept in maximal hyperflexion by my criminal legal assistant. A 4.5 mm drill bit was used to create a area relief pilot hole I did all of the work for the femoral tunnel through the medial portal for accurate femoral tunnel placement. A guide pin was placed in the area relief pilot hole, and then a 10 mm acorn reamer was used to create the femoral socket 30 mm in depth. Excess bone was removed with a shaver. The U-shaped guide for the Mitek RigidFix cross pin fixation system was used. Small incisions were made on the lateral thigh. A cannula and trocar drilling device was through the U-guide, to place the trocars such that the cross pins would ultimately across the femoral tunnel. The trocar position crossing the femoral tunnel was confirmed arthroscopically after the guide had been removed. A Beath pin was now used to pull the tails of a Prolene suture out the skin of the lateral thigh. My criminal legal assistant grasped the tails of the Prolene suture, and I grasped the loop of the Prolene, using a grasper, through the tibial tunnel. The graft was now advanced through the tibial tunnel, into the femoral socket, where it seated nicely at 30 mm of depth. The additional drilling across the femoral bone plug was performed using the MiteMytonomy instrumentation short and long drills. The Mitek RigidFix cross pins were deployed, with excellent fixation of the graft. The graft could not be dislodged, with maximum manual tension distally. The graft was almost perfectly isometric with no appreciable tensioning of the graft at full extension. The distal fixation was with a 9 x 30 mm Maxine screw. A nitinol guidewire was placed first. A tap was used, followed by the 9 x 30 Maxine screw. The graft was examined arthroscopically, and was taut to probing and stable and appears in anatomic position and alignment. Excellent graft isometry was achieved with no knee capture, and there was no graft impingement in extension or throughout the range of motion. Knee exam showed normal Agusto and anterior drawer test. The tourniquet was released. Copious saline irrigation was used and bone debris was removed. Bone graft from the graft preparation was applied to the donor sites of the patella and tibia. These donor site incisions were closed with #1 Vicryl [id number] sutures. The central third patellar tendon defect was closed with #1 Vicryl suture. The subcutaneous tissues were closed with 2-0 Vicryl by my criminal legal assistant. My criminal legal assistant closed all of the skin incisions with #3-0 StrataFix monocryl suture. Additional local anesthetic with epinephrine was injected, 20 mLs of 0.5% ropivacaine with epinephrine. Bulky sterile gauze dressings were applied followed by an OMER wrap. Needle and sponge counts were correct. There were no apparent complications. My criminal legal assistant applied a brace in the operating room. DORA BUENO MD Sep 09, 2020 11:21
[2020-09-09] MEDS ORDERED: CALCIUM CARBONATE 500 MG TAB.CHEW PO PRN (11:30)
[2020-09-09] MEDS ORDERED: 0.9 % SODIUM CHLORIDE 10 ML DISP.SYRIN. IV PRN (11:30)
[2020-09-09] MEDS ORDERED: METOCLOPRAMIDE HCL 10 MG/2 ML VIAL. IVP PRN (11:30)
[2020-09-09] MEDS ORDERED: PROCHLORPERAZINE 5 MG TABLET. PO PRN (11:30)
[2020-09-09] MEDS ORDERED: ZOLPIDEM 5 MG TABLET. PO PRN (11:30)
[2020-09-09] MEDS ORDERED: fentaNYL PF VIAL 100 MCG/2 ML VIAL IVP PRN (11:30)
[2020-09-09] MEDS ORDERED: DEXTROSE 50% 25 GM / 50ML DISP.SYRIN. IV PRN (11:30)
[2020-09-09] MEDS: ONDANSETRON PF 4 MG/2 ML VIAL. IVP SCH ×2 (12:00→18:00)
[2020-09-09] MEDS: ONDANSETRON ODT 4 MG TAB.RAPDIS. PO SCH ×2 (12:00→18:00)
[2020-09-09 12:15] VITALS: BP 127/55
--- NOTE | 2020-09-09 12:35 | RAD ---
EXAM: 2 views left knee DATE: 09/09/2020 11:21 AM INDICATION: Reason: POST OP / Spl. Instructions: / History: COMPARISON: 03/30/2020 FINDINGS/ IMPRESSION: 1. Changes of ACL reconstruction are now seen with expected postoperative soft tissue changes including intra-articular and soft tissue gas. Postoperative changes of the patellar and tibial tuberosity from bone graft harvest site. 2. Otherwise no acute fracture or dislocation. Electronically signed by: Roland Rizvi MD (09/09/2020 12:32 PM) [facility]
[2020-09-09] MEDS: KETOROLAC 30 MG/ML VIAL. IVP SCH ×2 (12:50→17:38)
[2020-09-09] MEDS: PROMETHAZINE 12.5 MG TABLET. PO SCH ×2 (12:53→17:38)
[2020-09-09] MEDS: oxyCODONE/APAP 10/325 1 TAB TABLET PO PRN ×2 (13:01→17:16)
[2020-09-09 15:00] VITALS: BP 111/78
[2020-09-09] MEDS: ceFAZolin SODIUM 3 GM in IV DEXTROSE 5% 100ML 100 ML IV SCH ×2 (15:04→20:08)
[2020-09-09 19:20] VITALS: BP 105/49
[2020-09-09] MEDS: diphenhydrAMINE 50 MG/ML VIAL IVP PRN (20:18)
[2020-09-09] MEDS: MORPHINE SULFATE 4 MG/ML VIAL. IVP PRN (20:19)
[2020-09-09] MEDS ORDERED: ASPIRIN ENTERIC COATED 325 MG TABLET.DR. PO SCH (21:00)
[2020-09-09 23:30] VITALS: BP 97/51
[2020-09-10] MEDS: KETOROLAC 30 MG/ML VIAL. IVP SCH ×2 (01:12→06:14)
[2020-09-10] MEDS: ONDANSETRON PF 4 MG/2 ML VIAL. IVP SCH ×2 (01:13→06:00)
[2020-09-10] MEDS: ceFAZolin SODIUM 3 GM in IV DEXTROSE 5% 100ML 100 ML IV SCH (02:26)
[2020-09-10 03:14] VITALS: BP 85/53
--- NOTE | 2020-09-10 04:22 | NUR ---
Patient able to transfer self to [facility] [place] and wearing immobilizer and remain NWB. Asks if she can have a commode for her house. Also asks if ambulance can take her home and help her with the 15 stairs to get into her place.
[2020-09-10] MEDS ORDERED: MAGNESIUM HYDROXIDE 2,400 MG/30 ML ORAL.SUSP. PO PRN (06:00)
[2020-09-10] MEDS: ONDANSETRON ODT 4 MG TAB.RAPDIS. PO SCH ×2 (06:00)
[2020-09-10] MEDS: PROMETHAZINE 12.5 MG TABLET. PO SCH ×2 (06:00)
[2020-09-10] MEDS: oxyCODONE/APAP 10/325 1 TAB TABLET PO PRN ×2 (06:29→10:23)
[2020-09-10 07:00] VITALS: BP 103/59
[2020-09-10] MEDS: diphenhydrAMINE 50 MG/ML VIAL IVP PRN (07:48)
[2020-09-10] MEDS: MORPHINE SULFATE 4 MG/ML VIAL. IVP PRN (08:42)
[2020-09-10] MEDS ORDERED: SENNOSIDES/DOCUSATE 8.6/50MG TABLET. PO SCH (09:00)
[2020-09-10] MEDS ORDERED: MULTIVITAMIN with MINERAL TABLET. PO SCH (09:00)
[2020-09-10 11:00] VITALS: BP 123/49
[2020-09-10] MEDS ORDERED: ONDANSETRON ODT 4 MG TAB.RAPDIS. PO PRN (12:00)
[2020-09-10] MEDS ORDERED: ONDANSETRON PF 4 MG/2 ML VIAL. IVP PRN (12:00)
--- NOTE | 2020-09-10 12:21 | NUR ---
pt was discharged home with self care. parents came to pick her up from hospital at 1200, went over all discharge instructions with her and her pain meds, (hydrocodone was written out and given to her, and a percocet script was electronically sent into her pharmacy), pt took 3 pillows home with her, said she needed padding for her knee. Regulo Santos RN
[2020-09-10] MEDS ORDERED: BISACODYL 10 MG SUPP.RECT. PR PRN (16:00)
== END 2020-09-10 11:58 | disposition home or self-care (01) ==
LOC: SURG 06:14 → 4 NORTH 11:21
PROVIDERS: ADMIT Orthopaedic Surgery; ATTEND Orthopaedic Surgery
DX: S83.512A Sprain of anterior cruciate ligament of left knee, initial encounter (principal); X58.XXXA Exposure to other specified factors, initial encounter; Y93.89 Activity, other specified; Y92.89 Other specified places as the place of occurrence of the external cause; Y99.8 Other external cause status
CPT/HCPCS: 29888; 73560; 81025; 96365; 96366; 96375; 96376; 97116; 97161; 97166; 97530; 97535; A7015; C1713; G0378; G0379; J0171; J0690; J0780; J1100; J1170; J1200; J1885; J2250; J2270; J2405; J2704; J3010; J7030; J7060; Q0169

== ENCOUNTER 2020-09-14 16:22 | Emergency (ER) | payer OTHER ==
[~2020-09-14] VITALS: Ht 177.8 cm; Wt 115.0 kg
[2020-09-14 17:30] VITALS: BP 109/67
[2020-09-14] MEDS ORDERED: IV NORMAL SALINE 1000ML BAG 1,000 ML IV ONE (17:30)
[2020-09-14] MEDS ORDERED: MORPHINE SULFATE 4 MG/ML VIAL. IV ONE (17:45)
[2020-09-14] MEDS ORDERED: ONDANSETRON PF 4 MG/2 ML VIAL. IV ONE (17:45)
[2020-09-14] MEDS ORDERED: diphenhydrAMINE 50 MG/ML VIAL IVP ONE (18:30)
[2020-09-14] MEDS ORDERED: KETOROLAC 30 MG/ML VIAL. IV ONE (18:45)
[2020-09-14 19:04] LABS: BASO # 0.1 x10^3/uL (0.0-0.2); BASO % 1 % (0-3); EOS # 0.2 x10^3/uL (0.0-0.7); EOS % 2 % (0-3); HEMATOCRIT 38.6 % (36.0-47.0); HEMOGLOBIN 13.3 g/dL (12.0-15.5); LYMPH # 1.8 x10^3/uL (1.0-4.8); LYMPH % 18 % (24-48); MEAN CORPUSCULAR HEMOGLOBIN 29 pg (25-35); MEAN CORPUSCULAR HGB CONC 34 g/dL (31-37); MEAN CORPUSCULAR VOLUME 85 fL (79-100); MONO # 0.6 x10^3/uL (0.0-1.1); MONO % 6 % (0-9); NEUT # 7.3 x10^3/uL (1.8-7.7); NEUT % 73 % (31-73); PLATELET COUNT 243 x10^3/uL (140-400); RED BLOOD COUNT 4.55 x10^6/uL (3.50-5.40); RED CELL DISTRIBUTION WIDTH 16.3 % (11.5-14.5)
[2020-09-14 19:23] LABS: ALBUMIN 2.5 g/dL (3.4-5.0); ALBUMIN/GLOBULIN RATIO 0.7 (1.0-1.7); CALCIUM 8.4 mg/dL (8.5-10.1); CREATININE 0.8 mg/dL (0.6-1.0); GFR 83.7; TOTAL BILIRUBIN 0.3 mg/dL (0.2-1.0); TOTAL PROTEIN 6.2 g/dL (6.4-8.2)
[2020-09-14 19:33] LABS: POTASSIUM 4.4 mmol/L (3.5-5.1)
--- NOTE | 2020-09-14 19:41 | RAD ---
Exam: Left lower extremity venous duplex study INDICATION: Leg swelling TECHNIQUE: Using a combination of real-time ultrasound imaging and color-flow and pulse Doppler imaging techniques along with graded compression and augmentation, duplex evaluation of the deep venous systems of leftlower extremity was performed. Multiple images were obtained. Findings: There is no sonographic evidence for deep venous thrombosis involving the visualized deep venous structures of the left lower extremity. IMPRESSION: No acute DVT in the left lower extremities. Electronically signed by: Silvia Sánchez MD (09/14/2020 7:38 PM) [facility]
--- NOTE | 2020-09-14 20:24 | ED.ADGEN ---
Past Medical History Past Medical History: Asthma, Seizure Additional Past Medical Histor: POLYCYSTIC OVARY, SKIN CANCER, SVT Past Surgical History: , Other Additional Past Surgical Histo: 2 cardiac ablasion,3 ACL repairs, skin cancer, PCOS Smoking Status: Current Every Day Smoker Alcohol Use: Occasionally Drug Use: None General Adult EDM: Chief Complaint: LOWER EXT PAIN HPI: HPI: Patient is a 29 year old AA female, accompanied by her mother, who presents emergency room with complaints of left knee and left lower leg pain and swelling. Patient reports that she had an ACL repair here at this facility [address] Bueno. Patient states she was supposed to have outpatient venous Doppler done but the outpatient department sent her to the ER because of her pain level and recent surgery. She denies any bleeding or discharge from the surgical site. She denies any fever, numbness, tingling, or weakness of the lower extremity. She reports pain in her left knee and lower extremity that she currently rates a 10 out of 10 on the pain scale. She denies any alleviating factors. She denies any fall or twisting injury since having the surgery. Review of Systems: Review of Systems: Complete ROS is negative unless otherwise noted in HPI. Current Medications: Current Medications Medications (Trade) Dose Ordered Sig/Ced Start Time Stop Time Status Last Admin Dose Admin Diphenhydramine HCl (Benadryl) 25 mg 1X ONCE 09/14/20 18:30 09/14/20 18:31 DC 09/14/20 18:24 25 MG Ketorolac Tromethamine (Toradol 30mg Vial) 30 mg 1X ONCE 09/14/20 18:45 09/14/20 18:46 DC 09/14/20 19:00 30 MG Morphine Sulfate (Morphine Sulfate) 4 mg 1X ONCE 09/14/20 17:45 09/14/20 17:46 DC 09/14/20 18:12 4 MG Ondansetron HCl (Zofran) 4 mg 1X ONCE 09/14/20 17:45 09/14/20 17:46 DC 09/14/20 18:13 4 MG Oxycodone/ Acetaminophen (Percocet 10/325) 1 tab 1X ONCE 09/14/20 20:30 09/14/20 20:31 DC 09/14/20 20:30 1 TAB Sodium Chloride 1,000 ml @ 1,000 mls/hr 1X ONCE 09/14/20 17:30 09/14/20 18:29 DC 09/14/20 18:15 1,000 MLS/HR Allergies: Allergies: Allergies Coded Allergies Type Severity Reaction Last Updated Verified Sulfa (Sulfonamide Antibiotics) Allergy Intermediate 09/09/20 Yes azithromycin Allergy Intermediate 09/09/20 Yes bupivacaine Allergy Intermediate Rash 09/09/20 Yes ciprofloxacin Allergy Intermediate 09/09/20 Yes clindamycin Allergy Intermediate 09/09/20 Yes sulfamethoxazole Allergy Intermediate 09/09/20 Yes tetracycline Allergy Intermediate 09/09/20 Yes trimethoprim Allergy Intermediate 09/09/20 Yes Physical Exam: PE: See Above Constitutional: Well developed, well nourished, no acute distress, non-toxic appearance, obese. [] HENT: Normocephalic, atraumatic, bilateral external ears normal, nose normal. [] Eyes: PERRLA, EOMI, conjunctiva normal, no discharge. [] Neck: Normal range of motion, no stridor. [] Cardiovascular:Heart rate regular rhythm Lungs & Thorax: Respirations even and unlabored, no retractions, no respiratory distress Skin: Warm, dry, no erythema, no rash; surgical incision to the left knee, no purulent drainage or bleeding, some bruising is present, no warmth. [] Extremities: Lower left extremity: No cyanosis, ROM limited due to pain, 2+ edema of lower left extremity, 2+ pedal pulse, sensation intact Neurologic: Alert and oriented X 3, no focal deficits noted. [] Psychologic: Affect normal, judgement normal, mood normal. [] Current Patient Data: Labs: Laboratory Tests Test 09/14/20 18:50 White Blood Count 10.0 x10^3/uL (4.0-11.0) Red Blood Count 4.55 x10^6/uL (3.50-5.40) Hemoglobin 13.3 g/dL (12.0-15.5) Hematocrit 38.6 % (36.0-47.0) Mean Corpuscular Volume 85 fL (79-100) Mean Corpuscular Hemoglobin 29 pg (25-35) Mean Corpuscular Hemoglobin Concent 34 g/dL (31-37) Red Cell Distribution Width 16.3 % (11.5-14.5) H Platelet Count 243 x10^3/uL (140-400) Neutrophils (%) (Auto) 73 % (31-73) Lymphocytes (%) (Auto) 18 % (24-48) L Monocytes (%) (Auto) 6 % (0-9) Eosinophils (%) (Auto) 2 % (0-3) Basophils (%) (Auto) 1 % (0-3) Neutrophils # (Auto) 7.3 x10^3/uL (1.8-7.7) Lymphocytes # (Auto) 1.8 x10^3/uL (1.0-4.8) Monocytes # (Auto) 0.6 x10^3/uL (0.0-1.1) Eosinophils # (Auto) 0.2 x10^3/uL (0.0-0.7) Basophils # (Auto) 0.1 x10^3/uL (0.0-0.2) Sodium Level 137 mmol/L (136-145) Potassium Level 4.4 mmol/L (3.5-5.1) Chloride Level 102 mmol/L (98-107) Carbon Dioxide Level 27 mmol/L (21-32) Anion Gap 8 (6-14) Blood Urea Nitrogen 11 mg/dL (7-20) Creatinine 0.8 mg/dL (0.6-1.0) Estimated GFR (Cockcroft-Gault) 83.7 BUN/Creatinine Ratio 14 (6-20) Glucose Level 89 mg/dL (70-99) Lactic Acid Level 0.8 mmol/L (0.4-2.0) Calcium Level 8.4 mg/dL (8.5-10.1) L Total Bilirubin 0.3 mg/dL (0.2-1.0) Aspartate Amino Transferase (AST) 25 U/L (15-37) Alanine Aminotransferase (ALT) 28 U/L (14-59) Alkaline Phosphatase 38 U/L (46-116) L Total Protein 6.2 g/dL (6.4-8.2) L Albumin 2.5 g/dL (3.4-5.0) L Albumin/Globulin Ratio 0.7 (1.0-1.7) L Laboratory Tests 09/14/20 18:50 Laboratory Tests 09/14/20 18:50 Vital Signs: Vital Signs Date Time Temp Pulse Resp B/P (MAP) Pulse Ox O2 Delivery O2 Flow Rate FiO2 09/14/20 20:30 22 98 Room Air 09/14/20 20:15 96 09/14/20 17:30 109/67 (81) 09/14/20 16:52 97.6 97.6 EKG: EKG: [] Heart Score: Risk Factors: Risk Factors: DM, Current or recent (<one month) smoker, HTN, HLP, family history of CAD, obesity. Risk Scores: Score 0 - 3: 2.5% MACE over next 6 weeks - Discharge Home Score 4 - 6: 20.3% MACE over next 6 weeks - Admit for Clinical Observation Score 7 - 10: 72.7% MACE over next 6 weeks - Early Invasive Strategies Radiology/Procedures: Radiology/Procedures: PROCEDURE: VENOUS LOWER EXTREMITY LEFT Exam: Left lower extremity venous duplex study INDICATION: Leg swelling TECHNIQUE: Using a combination of real-time ultrasound imaging and color-flow and pulse Doppler imaging techniques along with graded compression and augmentation, duplex evaluation of the deep venous systems of leftlower extremity was performed. Multiple images were obtained. Findings: There is no sonographic evidence for deep venous thrombosis involving the visualized deep venous structures of the left lower extremity. IMPRESSION: No acute DVT in the left lower extremities.[] Course & Med Decision Making: Course & Med Decision Making Pertinent Labs and Imaging studies reviewed. (See chart for details) [id number] spoke with Dr. Bueno and advised of his patient here in the ER. reports that he just sent refills of the patient's pain medications over to her pharmacy. I informed him of the plan of care. I will notify him if there is need to admit the patient for intractable pain. 2026-patient refused x-ray of her left knee I went to speak with the patient the patient reported that she was feeling better after the medications began to work. I advised her that there is no blood clot in her leg. I encouraged her to continue to ice and elevate the surgical extremity as instructed by and encouraged her to continue taking her pain medication that was previously prescribed. Patient requested 1 pain pill prior to being discharged. I ordered 110/325 mg tablet of oxycodone. Patient is instructed to call 's office in the morning to arrange follow-up. Return to the ER if symptoms worsen. Patient verbalized an understanding of home care, medications, follow-up, and return to ED instructions and was in agreement with the plan of care. Majo Disclaimer: Dragmissy Disclaimer: This electronic medical record was generated, in whole or in part, using a voice recognition dictation system. Departure Departure Impression: Primary Impression: Post-operative pain Disposition: 01 DC HOME SELF CARE/HOMELESS Condition: STABLE Referrals: DORA BUENO MD Patient Instructions: Pain Relief Preoperatively and Postoperatively Additional Instructions: Take your pain medication as prescribed by Dr. Bueno. Make sure to rest, ice, and elevate the leg as instructed by him. Follow-up with his office, call tomorrow to schedule your appointment. Return to the ER if symptoms worsen or fever develops. MANNY STALLINGS WORKERS COMPENSATION CLAIMS ADJUSTER Sep 14, 2020 20:24
[2020-09-14] MEDS ORDERED: oxyCODONE/APAP 10/325 1 TAB TABLET PO ONE (20:30)
== END 2020-09-14 20:30 | disposition home or self-care (01) ==
LOC: ER 16:22
DX: G89.18 Other acute postprocedural pain (principal); M79.662 Pain in left lower leg; M25.562 Pain in left knee; R60.0 Localized edema; J45.909 Unspecified asthma, uncomplicated; F17.200 Nicotine dependence, unspecified, uncomplicated; Z98.890 Other specified postprocedural states; Z88.2 Allergy status to sulfonamides; Z88.1 Allergy status to other antibiotic agents; Z88.8 Allergy status to other drugs, medicaments and biological substances
CPT/HCPCS: 36415; 80053; 83605; 85025; 93971; 96361; 96374; 96375; 99285; J1200; J1885; J2270; J2405; J7030

== ENCOUNTER 2021-03-14 18:50 | Emergency (ER) | payer OTHER ==
[~2021-03-14] VITALS: Ht 180.3 cm; Wt 113.6 kg
[2021-03-14 19:16] VITALS: BP 121/72
[2021-03-14] MEDS ORDERED: KETOROLAC 60 MG/2 ML VIAL. IM ONE (19:45)
[2021-03-14] MEDS ORDERED: ORPHENADRINE CITRATE 60 MG/2 ML VIAL. IM ONE (19:45)
[2021-03-14 19:47] LABS: BILIRUBIN,URINE NEGATIVE (NEG); CLARITY,URINE CLEAR; COLOR,URINE YELLOW; NITRITE,URINE NEGATIVE (NEG); PROTEIN,URINE NEGATIVE (NEG-TRACE); UROBILINOGEN,URINE 0.2 mg/dL (0.2 mg/dL)
[2021-03-14 19:53] LABS: BACTERIA,URINE MODERATE /HPF (0-FEW); WBC,URINE 20-40 /HPF (0-4)
--- NOTE | 2021-03-14 20:17 | RAD ---
EXAM: Thoracic and lumbar spine CT without contrast. HISTORY: Fall. TECHNIQUE: Computed tomographic images of the thoracic and lumbar spine were obtained without contras t. Multiplanar reformatting was performed. *One or more of the following individualized dose reduction techniques were utilized for this examina tion: 1. Automated exposure control. 2. Adjustment of the mA and/or kV according to patient size. 3. Use of iterative reconstruction technique. COMPARISON: None. FINDINGS: Thoracic spine: There is mild thoracic scoliosis. There is no significant thoracic listhesis. There i s ex chronic anterior inferior endplate remodeling and Schmorl's node formation at T6. There is also mild endplate remodeling and there are tiny endplate Schmorl's nodes at T7-T8 and T8-T9. There is no suspicious osseous lesion. There are a few small thoracic disc protrusions. There is no significant f oraminal or central canal stenosis. Lumbar spine: There is minimal retrolisthesis of L4 on L5 and L5 and S1. There is minimal multilevel endplate remodeling. There is no suspicious lytic or sclerotic osseous lesion. There is no fracture. The sacroiliac joints are intact. At L1-L2 and L2-L3, there is no stenosis. At L3-L4, there is a right foraminal disc protrusion superimposed on a disc bulge. There is mild righ t foraminal stenosis. At L4-L5, there is a disc bulge and endplate remodeling. There is mild right foraminal stenosis. At L5-S1, there is no stenosis. IMPRESSION: 1. No acute osseous finding. 2. Mild degenerative change throughout the thoracic and lumbar spine, described in detail above. No s evere stenosis is seen. Electronically signed by: Jeri Levin MD (03/14/2021 8:14 PM) [facility]
[2021-03-14] MEDS ORDERED: CYCL10TA2 PO (21:09)
[2021-03-14] MEDS ORDERED: NAPR-514 PO (21:09)
--- NOTE | 2021-03-14 21:12 | ED.ADGEN ---
Past Medical History Past Medical History: Asthma, Seizure Additional Past Medical Histor: POLYCYSTIC OVARY, SKIN CANCER, SVT, chronic knee pain Past Surgical History: , Other Additional Past Surgical Histo: 2 cardiac ablasion,3 ACL repairs, skin cancer, PCOS Smoking Status: Current Every Day Smoker Alcohol Use: Occasionally Drug Use: None General Adult EDM: Chief Complaint: MECHANICAL FALL HPI: HPI: Patient is a 30 year old AA female, accompanied by her significant other, who presents to the emergency room with complaints of diffuse upper the lower back pain after she slipped and fell yesterday. Patient states she walked out of her apartment complex and the floor in front of her was wet. When she stepped on a wet surface she slipped and fell. Patient denies any loss of consciousness, she denies any known head injury. Patient denies any nausea, vomiting, headache, decreased level of consciousness, ear pain, neck pain, numbness, tingling, or weakness. She reports pain all over her back from her bra line down to her buttocks, she denies any saddle anesthesia or loss of bowel/bladder control. Patient also denies any dysuria, hematuria, increased urinary frequency, or difficulty urinating. Patient states she had taken some Percocet for her pain prior to arrival but it did not help to reduce it at all. She currently rates her pain a 10 out of 10 on the pain scale, she denies any alleviating factors, the pain is worse with movement and palpation. Review of Systems: Review of Systems: Complete ROS is negative unless otherwise noted in HPI. Current Medications: Current Medications Medications (Trade) Dose Ordered Sig/[facility] Start Time Stop Time Status Last Admin Dose Admin Ketorolac Tromethamine (Toradol Im) 30 mg 1X ONCE 03/14/21 19:45 03/14/21 19:46 DC 03/14/21 20:04 30 MG Orphenadrine Citrate (Norflex) 60 mg 1X ONCE 03/14/21 19:45 03/14/21 19:46 DC 03/14/21 20:00 60 MG Allergies: Allergies: Allergies Coded Allergies Type Severity Reaction Last Updated Verified Sulfa (Sulfonamide Antibiotics) Allergy Intermediate 09/09/20 Yes azithromycin Allergy Intermediate 09/09/20 Yes bupivacaine Allergy Intermediate Rash 09/09/20 Yes ciprofloxacin Allergy Intermediate 09/09/20 Yes clindamycin Allergy Intermediate 09/09/20 Yes sulfamethoxazole Allergy Intermediate 09/09/20 Yes tetracycline Allergy Intermediate 09/09/20 Yes trimethoprim Allergy Intermediate 09/09/20 Yes Physical Exam: PE: See Above Constitutional: Well developed, well nourished, no acute distress, non-toxic appearance, obese. [] HENT: Normocephalic, atraumatic, bilateral external ears normal, nose normal. [] Eyes: PERRLA, EOMI, conjunctiva normal, no discharge. [] Neck: Normal range of motion, no stridor. [] Cardiovascular:Heart rate regular rhythm Lungs & Thorax: Respirations even and unlabored, no retractions, no respiratory distress Abdomen: soft, no tenderness Back: Diffuse bony tenderness to the lower thoracic and upper lumbar spine, diffuse tenderness to palpation of bilateral paraspinal regions, no obvious deformity or crepitus of spine with palpation. Skin: Warm, dry, no erythema, no rash. [] Extremities: No cyanosis, ROM intact, no edema. [] Neurologic: Alert and oriented X 3, normal motor, normal sensory, no focal deficits noted. [] Psychologic: Affect normal, judgement normal, mood normal. [] Current Patient Data: Labs: Laboratory Tests Test 03/14/21 19:20 03/14/21 19:23 Urine Collection Type Unknown Urine Color Yellow Urine Clarity Clear Urine pH 6.0 (<5.0-8.0) Urine Specific [place] 1.015 (1.000-1.030) Urine Protein Negative mg/dL (NEG-TRACE) Urine Glucose (UA) Negative mg/dL (NEG) Urine Ketones (Stick) 15 mg/dL (NEG) Urine Blood Negative (NEG) Urine Nitrite Negative (NEG) Urine Bilirubin Negative (NEG) Urine Urobilinogen Dipstick 0.2 mg/dL (0.2 mg/dL) Urine Leukocyte Esterase Moderate (NEG) Urine RBC 1-2 /HPF (0-2) Urine WBC 20-40 /HPF (0-4) Urine Squamous Epithelial Cells Mod /LPF Urine Bacteria Moderate /HPF (0-FEW) Urine Mucus Marked /LPF POC Urine HCG, Qualitative Hcg negative (Negative) Microbiology 03/14/21 Urine Culture - Final, Complete 03/14/21 Antimicrobic Susceptibility - Final, Complete Vital Signs: Vital Signs Date Time Temp Pulse Resp B/P (MAP) Pulse Ox O2 Delivery O2 Flow Rate FiO2 03/14/21 19:16 98.7 82 20 121/72 (88) 98 Room Air 98.7 EKG: EKG: [] Heart Score: C/O Chest Pain: No Risk Scores: Score 0 - 3: 2.5% MACE over next 6 weeks - Discharge Home Score 4 - 6: 20.3% MACE over next 6 weeks - Admit for Clinical Observation Score 7 - 10: 72.7% MACE over next 6 weeks - Early Invasive Strategies Radiology/Procedures: Radiology/Procedures: PROCEDURE: CT THORACIC SPINE WO CONTRAST EXAM: Thoracic and lumbar spine CT without contrast. HISTORY: Fall. TECHNIQUE: Computed tomographic images of the thoracic and lumbar spine were obtained without contrast. Multiplanar reformatting was performed. *One or more of the following individualized dose reduction techniques were utilized for this examination: 1. Automated exposure control. 2. Adjustment of the mA and/or kV according to patient size. 3. Use of iterative reconstruction technique. COMPARISON: None. FINDINGS: Thoracic spine: There is mild thoracic scoliosis. There is no significant thoracic listhesis. There is ex chronic anterior inferior endplate remodeling and Schmorl's node formation at T6. There is also mild endplate remodeling and there are tiny endplate Schmorl's nodes at T7-T8 and T8-T9. There is no suspicious osseous lesion. There are a few small thoracic disc protrusions. There is no significant foraminal or central canal stenosis. Lumbar spine: There is minimal retrolisthesis of L4 on L5 and L5 and S1. There is minimal multilevel endplate remodeling. There is no suspicious lytic or sclerotic osseous lesion. There is no fracture. The sacroiliac joints are intact. At L1-L2 and L2-L3, there is no stenosis. At L3-L4, there is a right foraminal disc protrusion superimposed on a disc bulge. There is mild right foraminal stenosis. At L4-L5, there is a disc bulge and endplate remodeling. There is mild right foraminal stenosis. At L5-S1, there is no stenosis. IMPRESSION: 1. No acute osseous finding. 2. Mild degenerative change throughout the thoracic and lumbar spine, described in detail above. No severe stenosis is seen. Electronically signed by: Jeri Levin MD (03/14/2021 8:14 PM) [facility][] Course & Med Decision Making: Course & Med Decision Making Pertinent Labs and Imaging studies reviewed. (See chart for details) Patient presented to emergency department with complaints of back pain after a fall. CT the patient's thoracic and lumbar spine revealed no acute findings there were mild degenerative changes noted throughout. Patient was given 60 mg IM Norflex and 30 mg of Toradol in the emergency department as she reported minimal relief from his medications. Prescriptions written for Flexeril and naproxen. Patient was instructed not to take Flexeril if taking Percocet. I encouraged her to follow-up with a primary care doctor, return to the ER if symptoms worsen or fever develop. Patient verbalized an understanding of home care, medications, follow-up, and return to ED instructions and was in agreement with the plan of care. //////////////////////////////// I oversaw on the above date of service of this patient and discussed the care with the PRICING MANAGER. I agree with the findings, plan of care, and disposition as documented. Electronically signed, DO Majo Nick Disclaimer: Majo Disclaimer: This electronic medical record was generated, in whole or in part, using a voice recognition dictation system. Departure Departure Impression: Primary Impression: Fall from slipping on wet surface Additional Impressions: Acute thoracic back pain Lumbar back pain Bulging discs Disposition: 01 HOME / SELF CARE / HOMELESS Condition: STABLE Referrals: NO PCP (PCP) Patient Instructions: Back Pain, Adult, [id number], Fall Prevention and Home Safety, [id number] Additional Instructions: Fill prescriptions and use them as directed follow-up with your primary care doctor for repeat evaluation in 1 to 2 days, return to the ER if symptoms worsen or fever develops. [facility] [address] [place] [address] [facility] [address] [place] [address] [facility] [address] [facility] [place] [address] [facility] [address] [place] [address] [facility] [address] [facility] [place] [address] [facility] [address] [place] [address] [facility] [place] [address] [facility] [address] [place] [address] [facility] [address] [place] [address] [facility] [address] [place] [address] Scripts Naproxen (NAPROXEN) 500 Mg Tablet 1 TAB PO BID PRN for PAIN for 10 Days, #20 TAB 0 Refills Prov: MANNY STALLINGS APRN 03/14/21 Cyclobenzaprine Hcl (CYCLOBENZAPRINE HCL) 10 Mg Tablet 1 TAB PO TID PRN for MUSCLE PAIN for 10 Days, #30 TAB 0 Refills Prov: MANNY STALLINGS APRN 03/14/21 Problem Qualifiers Primary Impression: Fall from slipping on wet surface Encounter type: initial encounter Qualified Codes: W01.0XXA - Fall on same level from slipping, tripping and stumbling without subsequent striking against object, initial encounter Additional Impressions: Acute thoracic back pain Back pain laterality: bilateral Qualified Codes: M54.6 - Pain in thoracic spine MANNY STALLINGS APRN March 14, 2021 21:12 CAROLYNE HARGROVE DO March 20, 2021 23:47
== END 2021-03-14 21:40 | disposition home or self-care (01) ==
LOC: ER 18:50
DX: M54.5 Low back pain (principal); M54.6 Pain in thoracic spine; M48.061 Spinal stenosis, lumbar region without neurogenic claudication; G89.11 Acute pain due to trauma; J45.909 Unspecified asthma, uncomplicated; F17.200 Nicotine dependence, unspecified, uncomplicated; G89.29 Other chronic pain; W01.0XXA Fall on same level from slipping, tripping and stumbling without subsequent striking against object, initial encounter; Y93.89 Activity, other specified; Y92.89 Other specified places as the place of occurrence of the external cause; Y99.8 Other external cause status
CPT/HCPCS: 72128; 72131; 81001; 81025; 87086; 96372; 99285; J1885; J2360; 87077; 87186; 99284